=== PATIENT | female | born 1975 | race Hispanic/Latino ===

== ENCOUNTER → 2023-08-07 | Outpatient (CLI) | payer OTHER, MEDICARE ==
[~2023-08-07] MED LIST: REGADENOSON 0.4 MG/5 ML PF SYG IVP ONE
== END | disposition home or self-care (01) ==
LOC: SHCH 08:38
PROVIDERS: ATTEND Internal Medicine Cardiovascular Disease
DX: I25.119 Atherosclerotic heart disease of native coronary artery with unspecified angina pectoris (principal); R07.89 Other chest pain; R00.2 Palpitations; I47.10 Supraventricular tachycardia, unspecified; Z79.899 Other long term (current) drug therapy
CPT/HCPCS: 78452; 96374; 93017; J2785; A9500 ×2

== ENCOUNTER → 2024-02-02 | Outpatient (CLI) | payer OTHER, MEDICARE | END | disposition home or self-care (01) | LOC: RAH 08:50 | PROVIDERS: ATTEND Internal Medicine Gastroenterology | DX: K21.9 Gastro-esophageal reflux disease without esophagitis (principal); K44.9 Diaphragmatic hernia without obstruction or gangrene; R10.13 Epigastric pain; R11.0 Nausea; Z98.890 Other specified postprocedural states | CPT/HCPCS: 74240 ==

== ENCOUNTER 2024-10-22 06:26 | Day surgery (SDC) | payer OTHER, MEDICARE ==
[2024-10-22] VITALS (12 sets, daily range): BP systolic 86–115; BP diastolic 45–63; PULSE 65–74; RESP 15–18; TEMP 97.1–98.1
[~2024-10-22] VITALS: Ht 154.9 cm; Wt 106.6 kg
[~2024-10-22 06:26] MED LIST changes: +METO-408 PO; -REGADENOSON 0.4 MG/5 ML PF SYG IVP ONE; +TIRZ7.5P SQ
[2024-10-22] MEDS: 0.9%NACL 1000ML 1,000 ML IV ONE (07:09)
[2024-10-22] MEDS: IpraTROPium/alBUTERol SULFATE 3 ML SOLUTION IH ONE ×2 (08:00)
[2024-10-22] MEDS ORDERED: proPOFol 10 MG/ML 20ML VIAL IV ONE (08:20)
--- NOTE | 2024-10-22 09:59 | NUR ---
Full and complete Discharge Instructions given to Patient and Family both verbally and in writing.. All questions answered.Voiced understanding to GI procedure precautions and Follow Up. PIV removed with catheter tip intact. Denies c/o pain or discomfort. W/C to POV with Family to home.
== END 2024-10-22 10:00 | disposition home or self-care (01) ==
LOC: DAH 06:26 → ENDO 06:26
PROVIDERS: ATTEND Internal Medicine Gastroenterology
DX: K59.00 Constipation, unspecified (principal); D12.2 Benign neoplasm of ascending colon; D12.0 Benign neoplasm of cecum; K29.50 Unspecified chronic gastritis without bleeding; K57.30 Diverticulosis of large intestine without perforation or abscess without bleeding; K64.8 Other hemorrhoids; K44.9 Diaphragmatic hernia without obstruction or gangrene; Z86.0100 Personal history of colon polyps, unspecified; K21.00 Gastro-esophageal reflux disease with esophagitis, without bleeding; R94.5 Abnormal results of liver function studies; D50.9 Iron deficiency anemia, unspecified; F41.9 Anxiety disorder, unspecified; F32.A Depression, unspecified; J44.9 Chronic obstructive pulmonary disease, unspecified; E11.9 Type 2 diabetes mellitus without complications; Z88.1 Allergy status to other antibiotic agents; Z88.5 Allergy status to narcotic agent; M19.90 Unspecified osteoarthritis, unspecified site; Z90.49 Acquired absence of other specified parts of digestive tract; Z98.890 Other specified postprocedural states; Z98.84 Bariatric surgery status; Z79.899 Other long term (current) drug therapy
CPT/HCPCS: 84703; 82948 ×2; 36415; 43239; 45380; 45385; 94640; J7030 ×2; J2704; A4620; A4215; A4223; A7002; A4222; A4221; A4663; A4606; J3490

== ENCOUNTER 2025-01-05 11:50 | Emergency (ER) | payer OTHER, MEDICARE ==
[~2025-01-05] VITALS: Ht 154.9 cm; Wt 108.9 kg
[2025-01-05 12:09] VITALS: BP 135/69; PULSE 82; RESP 16; TEMP 98.2
[2025-01-05] MEDS ORDERED: ketOROlac 15MG/ML VIAL (15MG/ML) IM STA (12:13)
--- NOTE | 2025-01-05 13:30 | NUR ---
CALLED IN LOBBY AND ED NO ANSWER
--- NOTE | 2025-01-05 13:40 | NUR ---
XRAY CALLED PT IN LOBBY AND ED NO ANSWER
--- NOTE | 2025-01-05 13:45 | NUR ---
CALLED IN LOBBY AND ED NO ANSWER
--- NOTE | 2025-01-05 13:48 | ERN ---
ED Note History of Present Illness Stated Complaint: KNEE PAIN Chief Complaint: Knee Injury/Swelling Time Seen by MD: 11:53 Time Seen by Midlevel: 12:00 Dictation: 49 year old female with a history of diabetes and arthritis coming in complaining of right knee pain for three days. Patient states he already has a problem with her knees and her PCP as bag and in his here with a arthritis periods patient states also at time she feels like her knees about a give out. No new trauma Allergies: Coded Allergies: levofloxacin (Unverified Allergy, Unknown, 10/21/24) methylprednisolone (Unverified Allergy, Unknown, 10/21/24) MEDROL PACK morphine (Unverified Allergy, Unknown, 10/21/24) Home Meds Reported Medications Tirzepatide (Mounjaro) 7.5 Mg/0.5 Ml Pen.injctr, 7.5 MG SQ QWEEK 10/21/24 Metoprolol Succinate (Metoprolol Succinate) 25 Mg Tab.er.24h, 25 MG PO BID, TAB 10/21/24 Past Medical History Past Medical History: COPD, Diabetes-Type II, Hypertension Surgical History: Other Surgical History Other: TRACHEOSTOMY Review of System Dictation Constitutional: Negative for fever,chills, and weight loss Eyes: Negative for injury, pain,redness, and discharge ENT: Negative for injury,pain or swelling Cardiovascular: Negative for chest pain, palpitations, and edema Respiratory: Negative for shortness of breath, cough, and wheezing, Abdomen/GI: Negative for abdominal pain, nausea, vomiting, diarrhea, and constipation Back: Negative for injury and pain : Negative for injury, bleeding and discharge MS/Extremity: Complaining of right knee pain Skin: Negative for rash, and discoloration Neuro: Negative for headache, weakness, numbness, tingling, and seizure Psych: Negative for suicide ideation, homicidal ideation, and hallucinations Review of Systems: was completed Initial Vital Sign VS Vital Signs Date Time Temp Pulse Resp B/P (MAP) Pulse Ox O2 Delivery O2 Flow Rate FiO2 01/05/25 12:09 98.2 82 16 135/69 99 Room Air Physical Exam Dictation General: awake, alert, NAD Head/Face: Normocephalic, atraumatic Eyes: PERRL, EOMI, vision at baseline ENT: oral cavity clear, TMs clear, no signs of infection Neck: Trachea midline, supple, no nuchal rigidity Cardiovascular: RRR, normal S1/S2, No MRGs, no JVD Respiratory: CTAB, no respiratory distress, No rales or wheezes Abdomen: Soft, non-tender, non-distended, normal bowel sounds, no guarding or rebound. Skin: Warm, dry, normal turgor, no rash MS/Extremity: Pulses equal, no cyanosis, neurovascular intact, FROM, pain on flexion in laterally on palpation Neuro: COAx4, GCS 15, strength 5/5, CN 2-12 intact, normal cerebellar exam, normal gait, Psych: Normal behavior, mood, and affect normal ED Course ED Course Orders Procedure Category Date Status Time Knee 3vws Rt RAD 01/05/25 Logged 12:13 Ketorolac PHA 01/05/25 Complete Tromethamine 15mg/Ml 12:13 Current Medications Medications (Trade) Dose Ordered Sig/Elijah Route PRN Reason Start Time Stop Time Status Last Admin Dose Admin Ketorolac Tromethamine (toRADol) 15 mg ONCE STAT IM 01/05/25 12:13 01/05/25 12:16 DC Vital Signs Date Time Temp Pulse Resp B/P (MAP) Pulse Ox O2 Delivery O2 Flow Rate FiO2 01/05/25 12:09 98.2 82 16 135/69 99 Room Air Medical Decision Making MDM MDM: 49 year old female with a history of diabetes and arthritis coming in complaining of right knee pain for three days. Patient states he already has a problem with her knees and her PCP as bag and in his here with a arthritis periods patient states also at time she feels like her knees about a give out. No new trauma. At 1:44 p.m., patient was called by x-ray myself multiple times in the lobby. Looks like patient has a eloped. Notified primary nurse. Differential diagnosis: Arthritis, joint effusion, tendon or ligament injury Rationale: Tests considered and ordered secondary to shared decision making in clude: Previous outside records reviewed: Old ER visits. Risk of complication and/or morbidity or mortality of patient management: None Medications-Per medication reconciliation Need for hospitalization: Patient does not meet criteria for hospitalization. Need for emergency major/minor surgery: No There are no social concerns with this patient. Prescription drug management Prescriptions will include symptomatic care Patient's prior external medical records from other ER visits were reviewed by me as indicated. Prior testing and results from previous visits were reviewed. Prior tests were taken into account with medical decision making and resource utilization, independent historian/historians were used to obtain complete medical history. I independently interpreted the test that were performed, results were reviewed by me and considered findings on radiology if ordered. Medical management and examination interpretation discussions were had by me with other qualified healthcare professionals as indicated for the patient's care. DX & DISP Disposition: Discharge Departure Impression: Primary Impression: Eloped from emergency department Condition: Stable Referrals: [facility] (PCP) Time of Disposition: 13:47 I have reviewed the case, and I agree with, Diagnosis and Plan ANGELA COYLE NP January 05, 2025 13:48
== END 2025-01-05 14:02 | disposition left against medical advice (07) ==
LOC: EDH 11:50
DX: M25.561 Pain in right knee (principal); E11.9 Type 2 diabetes mellitus without complications; I10 Essential (primary) hypertension; J44.9 Chronic obstructive pulmonary disease, unspecified; Z79.85 Long-term (current) use of injectable non-insulin antidiabetic drugs; Z79.899 Other long term (current) drug therapy; Z88.1 Allergy status to other antibiotic agents; Z88.5 Allergy status to narcotic agent
CPT/HCPCS: 99281